=== PATIENT | male | born 1940 | race Caucasian/White ===

== ENCOUNTER → 2017-08-27 | Outpatient (CLI) | payer MEDICARE, OTHER ==
[~2017-08-27] MED LIST: ALAVERT10 M1 PO; AMOXICILLIN 8751 TAB PO; ANTIHISTAMINE25 MG PO; ASPIRIN E.C. 8181 MG PO; BENTYL 10MG10 MG/CAP PO; CANASA 1000MG1000 MG RC; CEPHALEXIN500 M1 PO; CHLOR TRIMETON 44 MG PO; CIPRO 500MG TA500 MG PO; COZAAR 25MG25 MG/TAB PO; FLAGYL500 MG PO; LEVAQUIN 750MG750 M1 PO; LOTRISONE CREAM15 GM TP; PREVACID 15MG15 M1 PO; PROAIR HFA0.09 MG/AC IH; PROBIOTIC FORMU1 CAP PO; QUESTRAN4 GM/9 GM PO; RT ADVAIR 228 DISKUS IH; TYLENOL 325MG325 MG PO; VITAMIN B-1000 MCG/T PO
== END ==
LOC: COL.RAD 15:19
DX: M47.816 Spondylosis without myelopathy or radiculopathy, lumbar region (principal)

== ENCOUNTER → 2017-08-29 | Outpatient (CLI) | payer MEDICARE, OTHER | LOC: COL.RAD 14:12 | DX: S72.002A Fracture of unspecified part of neck of left femur, initial encounter for closed fracture (principal) ==

== ENCOUNTER → 2017-09-15 | Outpatient (CLI) | payer MEDICARE, OTHER | LOC: COL.VAS 12:54 | DX: M79.605 Pain in left leg (principal); Z98.890 Other specified postprocedural states; Z68.25 Body mass index [BMI] 25.0-25.9, adult ==

== ENCOUNTER → 2021-09-04 | Outpatient (CLI) | payer MEDICARE, OTHER | LOC: COL.VAS 09:37 | DX: I73.9 Peripheral vascular disease, unspecified (principal) ==

== ENCOUNTER 2021-12-29 01:53 | Emergency (ER) | payer MEDICARE, OTHER ==
[~2021-12-29] VITALS: Ht 182.9 cm; Wt 77.3 kg
[2021-12-29 02:18] VITALS: TEMP 97.5
[2021-12-29 02:32] VITALS: BP 128/98; PULSE 85
== END 2021-12-29 02:37 | disposition home or self-care (01) ==
LOC: COL.ER 01:53
DX: S40.852A Superficial foreign body of left upper arm, initial encounter (principal); W45.8XXA Other foreign body or object entering through skin, initial encounter

== ENCOUNTER 2022-06-04 07:54 | Day surgery (SDC) | payer MEDICARE ==
[~2022-06-04] VITALS: Ht 182.9 cm; Wt 80.5 kg
[2022-06-04 09:22] VITALS: BP 141/74; PULSE 77; TEMP 97.4
[2022-06-04] MEDS ORDERED: FLAGYL 250250 MG/TAB PO (10:27)
[2022-06-04] MEDS ORDERED: VITAMIN D3 PO (10:27)
[2022-06-04] MEDS ORDERED: COPPER PO (10:29)
[2022-06-04] MEDS ORDERED: PEPTO BISM262 MG/15 PO (10:30)
[2022-06-04] MEDS ORDERED: IRON PO (10:30)
[2022-06-04] MEDS ORDERED: FOSAMAX 70MG TA70 MG PO ×2 (10:32)
[2022-06-04] MEDS ORDERED: MAGNESIUM250 M1 PO (10:33)
[2022-06-04 11:50] VITALS: BP 147/71; PULSE 72; TEMP 97.4
[2022-06-04 12:05] VITALS: BP 146/74; PULSE 74
[2022-06-04 12:20] VITALS: BP 160/83; PULSE 76
[2022-06-04 12:32] VITALS: BP 150/66; PULSE 80
--- NOTE | 2022-06-04 12:45 | NUR ---
1150 RETURNS TO ROOM 2 PER CART. AWAKE, ALERT. RESP CLEAR, UNLABORED. HOB ELEVATED 40 DEGREES. VITAL SIGNS OBTAINED. DENIES DIACOMFORT. PENIS INCISION INTACT. NO DRAINAGE OBSERVED. CALL LIGHT AT SIDE. SIGNIFICANT OTHER IN ROOM 1205 TOLERATES PO JUICE AND MUFFIN WITHOUT NAUSEA. 1207 DISCHARGE INSTRUCIONS REVIEWED. PATIENT AND SIGNIFICANT OTHER VERBALIZE UNDERSTANDING. COPY PROVIDED IN DISCHARGE FOLDER. 1210 AMBULATES TO BATHROOM WITH WALKER AND STANDBY ASSIST. REPORT VOIDED WITHOUT DIFFICULTY 1225 DENIES DISCOMFORT. PENIS INCISION WITHOUT DRAINAGE. NO EDEMA OBSERVED 1235 SITS ON EDGE OF CART. DRESSES SELF.
== END 2022-06-04 12:45 | disposition home or self-care (01) ==
LOC: SDCO 07:54
DX: N47.1 Phimosis (principal); K21.9 Gastro-esophageal reflux disease without esophagitis; Z87.891 Personal history of nicotine dependence; Z85.46 Personal history of malignant neoplasm of prostate; Z79.899 Other long term (current) drug therapy
CPT/HCPCS: J0690; J2405; J2704; J7120

== ENCOUNTER 2022-07-16 17:58 | Emergency (ER) | payer MEDICARE ==
[~2022-07-16] VITALS: Ht 182.9 cm; Wt 81.8 kg
[~2022-07-16 17:58] MED LIST changes: +COPPER PO; +FLAGYL 250250 MG/TAB PO; +FOSAMAX 70MG TA70 MG PO; +IRON PO; +MAGNESIUM250 M1 PO; +PEPTO BISM262 MG/15 PO; +VITAMIN D3 PO
[2022-07-16 18:11] VITALS: TEMP 98
[2022-07-16] MEDS ORDERED: NORCO 325 MG-51 TAB PO (20:08)
[2022-07-16 20:24] VITALS: BP 168/83; PULSE 69
== END 2022-07-16 20:40 | disposition home or self-care (01) ==
LOC: COL.ER 17:58
DX: S32.038A Other fracture of third lumbar vertebra, initial encounter for closed fracture (principal); M48.061 Spinal stenosis, lumbar region without neurogenic claudication; W01.198A Fall on same level from slipping, tripping and stumbling with subsequent striking against other object, initial encounter; Y93.01 Activity, walking, marching and hiking

== ENCOUNTER 2022-08-09 06:56 | Outpatient (CLI) | payer MEDICARE ==
[2022-08-09] VITALS (10 sets, daily range): BP systolic 114–160; BP diastolic 59–88; PULSE 64–81; TEMP 98
[~2022-08-09] VITALS: Ht 182.9 cm; Wt 77.3 kg
[~2022-08-09 06:56] MED LIST changes: +B-121000 MCG PO; +NORCO 325 MG-51 TAB PO; -VITAMIN B-1000 MCG/T PO
[2022-08-09] MEDS ORDERED: ERGOCALCIFER50000 IU PO (08:21)
[2022-08-09] MEDS ORDERED: COPPER GLUCONATE PO (08:24)
--- NOTE | 2022-08-09 08:53 | NUR ---
SEE MERGE FOR ALL INTERVENTIONS, VITAL SIGNS AND MEDICATIONS.
--- NOTE | 2022-08-09 12:18 | NUR ---
PT CAME IN FOR A VERTEBROPLASTY. MEDS, HX AND CONSENT DONE. AFTER ARRIVING BACK TO THE FLOOR PT WAS RESTING COMFORTABLY, NO QUESTIONS OR CONCERNS AT THAT TIME. VITALS STABLE THROUGHOUT RECOVERY. PT WAS PROVIDED DISCHARGE INFO AND EDUCATION, WENT THROUGH THESE PAPERS WITH THE PT. NO QUESTIONS OR CONCERNS. VERBALIZED UNDERSTANDING. PT WAS ACCOMPANIED BY WHEELCHAIR TO WIFES CAR.
== END 2022-08-09 12:12 ==
LOC: COL.CAR 06:56
DX: M48.56XA Collapsed vertebra, not elsewhere classified, lumbar region, initial encounter for fracture (principal); M54.50 Low back pain, unspecified; G62.9 Polyneuropathy, unspecified; Z87.891 Personal history of nicotine dependence
CPT/HCPCS: C1713; J2250; J3010; J7120

== ENCOUNTER 2023-10-25 21:51 | Inpatient (IN) | payer MEDICARE ==
[~2023-10-25] VITALS: Ht 182.9 cm; Wt 71.7 kg
[~2023-10-25 21:51] MED LIST changes: +COPPER GLUCONATE PO; +ERGOCALCIFER50000 IU PO
[2023-10-25] MEDS ORDERED: NS 1,000 ML IV ONE (22:15)
[2023-10-25] MEDS ORDERED: Ondansetron 4 MG/2 ML VIAL IV ONE (22:15)
[2023-10-25 22:38] LABS: BASO % 0.2 % (0.0-2.0); EOS # 0.2 K/mm3 (0.0-0.7); HEMATOCRIT 40.9 % (42.0-52.0); HEMOGLOBIN 13.5 g/dl (13.5-18.0); LYMPH # 0.7 K/mm3 (1.2-3.4); LYMPH % 8.4 % (20.0-51.0); MEAN CELL VOLUME 107 fl (80.0-100.0); MEAN CORPUSCULAR HEMOGLOBIN 35 pg (27-31); MEAN CORPUSCULAR HGB CONC 33 g/dl (33.0-37.0); MEAN PLATELET VOLUME 9.3 fl (7.4-10.4); MONO # 0.4 K/mm3 (0.1-0.6); MONO % 4.8 % (1.7-9.3); PLATELET COUNT 272 K/mm3 (130-400); RED BLOOD COUNT 3.84 M/mm3 (4.20-5.60); REDCELL DISTRIBUTION WIDTH-CV 12.4 % (11.5-14.5)
[2023-10-25 23:02] LABS: ALANINE AMINOTRANSFERASE 16 U/L (0-55); ALBUMIN 3.8 g/dL (3.4-4.8); ALKALINE PHOSPHATASE 85 U/L (40-150); ANION GAP 12 mmol/L (7-16); AST,SGOT 19 U/L (5-34); BILIRUBIN,TOTAL 0.3 mg/dL (0.2-1.2); BLOOD UREA NITROGEN 37 mg/dL (8-26); CALCIUM 9.5 mg/dL (8.4-10.2); CHLORIDE 111 mEq/L (98-107); CREATININE, serum 1.58 mg/dL (0.72-1.25); GLUCOSE 154 mg/dL (70-99); LIPASE 47 U/L (8-78); POTASSIUM 4.5 mEq/L (3.5-4.5); SODIUM 139 mEq/L (136-145); TOTAL PROTEIN 7.8 g/dl (6.2-8.1)
[2023-10-25] MEDS ORDERED: Mag/Al Hydrox/Simeth Susp 30 ML CUP PO ONE (23:15)
[2023-10-25] MEDS ORDERED: Lidocaine 2% Viscous 15 ML UNIT DOSE MM ONE (23:15)
[2023-10-25 23:20] LABS: TROPONIN-I < 0.010 ng/mL (0.00-0.033)
[2023-10-26] VITALS (10 sets, daily range): BP systolic 119–714; BP diastolic 73–81; PULSE 78–90; TEMP 97.4–98.8
[2023-10-26] MEDS ORDERED: Iodixanol-320 100 ML BOTTLE IV ONE (00:03)
[2023-10-26] MEDS ORDERED: NS 50 ML IV ONE (00:05)
[2023-10-26] MEDS ORDERED: Morphine 4 MG/ML VIAL IV ONE (00:45)
[2023-10-26] MEDS ORDERED: Ondansetron 4 MG/2 ML VIAL IV PRN (02:15)
[2023-10-26] MEDS ORDERED: NS 1,000 ML IV SCH (02:15)
[2023-10-26] MEDS ORDERED: Acetaminophen 325 MG TAB PO PRN (02:15)
[2023-10-26] MEDS ORDERED: Morphine 4 MG/ML VIAL IV PRN (02:30)
[2023-10-26] MEDS ORDERED: hydrALAZINE 20 MG/ML 1 ML VIAL IV PRN (02:30)
--- NOTE | 2023-10-26 04:15 | NUR ---
Pt transferred to room 328 from ED via bed. Pt able to transfer self to bed x1 assist. Gait is unsteady. Pt is A&Ox4 and he is accompanied by his daughter at this time. Admission completed. Pt presents w/ NG tube in place to right nare. Advancement required from 10 to 60. Pt tolerated this advancement well. Light brown drainage noted in suction tubing. Low intermittent suction initiated per orders. 22G present to right wrist and is saline locked at time of transfer. Zosyn IV reinitiated by RN. Pt does have a small raised area w/ puncture to left cheek that is red in color. Pt states he was stung by a wasp and that the area had josefa to a head and popped. No active drainage noted. No warmth to touch. Fall risk precautions initiated. Yellow gown and nonskid socks placed. Bed alarm on. Call light in reach. Pt has no questions or concerns at this time. Care ongoing.
[2023-10-26 04:17] LABS: COLLECTION METHOD CLEAN CATCH
[2023-10-26 04:27] LABS: URINE APPEARANCE CLEAR (CLEAR/HAZY); URINE BLOOD NEGATIVE (NEGATIVE); URINE COLOR YELLOW (YELLOW); URINE GLUCOSE NEGATIVE (NEGATIVE); URINE KETONE NEGATIVE (NEGATIVE); URINE NITRATE NEGATIVE (NEGATIVE); URINE PROTEIN(semi-quant) NEGATIVE (NEGATIVE); URINE UROBILINOGEN 0.2 E.U/dL (0.2-1.0)
--- NOTE | 2023-10-26 06:22 | NUR ---
Pt monitored throughout the night. Pt denies any current pain or nausea/vomitting. NG remains in place in right nare and has decreased to 55. Low intermittent suction remains on. Pt denies movement or pulling NG tube. Scant amount of light brown drainage noted in suction tubing. No drainage in suction cannister. Pt has remained NPO. PIV remains in place to right wrist w/ NS @ 75mL infusing w/o complications. No needs or concerns voiced. Call light in reach. Care ongoing.
--- NOTE | 2023-10-26 06:40 | NUR ---
PT RESTING IN BED. PT IS NPO. PT HAS NG TUBE TO RIGHT NARE AT LIS. PT HAS NS RUNNING. PT IS ON RA. PT IS AXOX4. PT IS IN FALL PRECAUTIONS. PT HAS CALL LIGHT AND INSTRUCTED TO CALL WITH ALL NEEDS.
[2023-10-26] MEDS ORDERED: Pantoprazole 40 MG in NS 10 ML IV SCH (09:00)
[2023-10-26] MEDS ORDERED: Heparin 5,000 UNITS/ML 1 ML VIAL SQ SCH (09:00)
--- NOTE | 2023-10-26 10:15 | NUR ---
AGUEDA met with patient to complete initial assessment for discharge planning Patient states he lives in [place] with his friend Yajaira Jewell ([phone]). He states that Yajaira and his son Brian Sanchez ([phone]) are his DPOA and his daughter Ligia Ignacio is alternate DPOA. Patient states he sees Dr. Mckay as his PCP and he uses [facility]. Patient uses a cane, walker and grab bars for DME. Patient states he is independent with ADLs and continues to drive himself to appointments. Patient states he usually has no problems affording medications but did receive manufacture's assistance with an expensive antibiotic recently. Patient plans to return home at discharge but is willing to discuss discharge options pending medical course. Discharge plan: Home
--- NOTE | 2023-10-26 20:00 | NUR ---
PATIENT IS A&O. VSS. REPORTS MILD ABD DISCOMFORT, DENIES NEED FOR PAIN MEDS. ABD IS ROUND AND WITH POSITIVE BOWL SOUNDS PRESENT. NO GAS & NO BM YET. NPO. NG TO LIS WITH SMALL AMOUNTS OF WHITESIDE-GREEN OUTPUT. NO C/O N/V. IV FLUIDS INFUSING VIA PUMP INTO RIGHT WRIST IV. HEAD TO TOE ASSESSMENT COMPLETE. NO OTHER NEEDS AT THIS TIME. CALL LIGHT IN REACH.
[2023-10-27] VITALS (11 sets, daily range): BP systolic 153–186; BP diastolic 79–89; PULSE 71–80; TEMP 97.7–98.5
[2023-10-27 07:05] LABS: BASO % 0.4 % (0.0-2.0); EOS # 0.2 K/mm3 (0.0-0.7); EOS % 2.9 % (0.0-4.0); GRAN # 3.8 K/mm3 (1.4-6.5); GRAN % 73.9 % (42.2-75.2); LYMPH # 0.8 K/mm3 (1.2-3.4); LYMPH % 15.6 % (20.0-51.0); MEAN CORPUSCULAR HGB CONC 33 g/dl (33.0-37.0); MEAN PLATELET VOLUME 9.2 fl (7.4-10.4); MONO # 0.4 K/mm3 (0.1-0.6); MONO % 6.8 % (1.7-9.3); PLATELET COUNT 190 K/mm3 (130-400); RED BLOOD COUNT 3.14 M/mm3 (4.20-5.60); REDCELL DISTRIBUTION WIDTH-CV 12.5 % (11.5-14.5)
[2023-10-27 07:13] LABS: HEMATOCRIT 32.9 % (42.0-52.0); HEMOGLOBIN 10.8 g/dl (13.5-18.0); MEAN CELL VOLUME 105 fl (80.0-100.0); MEAN CORPUSCULAR HEMOGLOBIN 34 pg (27-31)
[2023-10-27 07:28] LABS: BILIRUBIN,TOTAL 0.5 mg/dL (0.2-1.2); CALCIUM 8.6 mg/dL (8.4-10.2); CREATININE, serum 1.2 mg/dL (0.72-1.25); TOTAL PROTEIN 6.1 g/dl (6.2-8.1)
--- NOTE | 2023-10-27 09:41 | NUR ---
Pt resting in bed with 2/10 chronic low back pain. Pt a/o x4, partner at bedside. Pt educated on decreased ice chip intake. Sponge provided and discharge plans discussed to set expectations. NG remains LIS, output sinha. Pt states recent falls at home and uses walker, high fall risk protocol in place. 1 assist to bathroom with walker. Wasp sting to left cheek red adn raised, no other skin issues noted. No needs at this time, will continue to monitor.
[2023-10-27] MEDS ORDERED: metroNIDAZOLE 100 ML IV SCH (11:53)
[2023-10-27] MEDS ORDERED: D5NS 1,000 ML IV SCH (12:00)
[2023-10-27] MEDS ORDERED: Dextrose 50% Water 25 GM/50 ML SYRINGE IV ONE (12:00)
[2023-10-27] MEDS ORDERED: FOSAMAX 70MG TA70 MG PO (12:59)
[2023-10-27] MEDS ORDERED: CHLOR-TABS4 MG PO (13:01)
[2023-10-27] MEDS ORDERED: NEURONTIN100 MG/CAP PO (13:02)
--- NOTE | 2023-10-27 14:09 | NUR ---
Pt NG tube clamped at this time per orders and clears provided. Will continue to monitor for increased pain or N/V.
--- NOTE | 2023-10-27 14:15 | NUR ---
D: Circuits Engineer stopped by room on rounds. A: Pt was resting and content with significant other in the room. Pt has no needs right now. P: Circuits Engineer informed pt that if he needed anything from the clinical data research area to let his nurse know. Circuits Engineer will follow up as needed.
[2023-10-27] MEDS ORDERED: hydrALAZINE 20 MG/ML 1 ML VIAL IV SCH (18:30)
[2023-10-27] MEDS ORDERED: hydrALAZINE 20 MG/ML 1 ML VIAL IV PRN (18:45)
--- NOTE | 2023-10-27 20:00 | NUR ---
PATIENT IS A&O. NOTED ELEVATED B/P IN THE 170'S SYSTOLIC, NO PRN REQUIRED. ALL OTHER VSS. NO C/O PAIN OR NAUSEA. TOLERATING CLEAR LIQUID DIET SO FAR. IV FLUIDS INFUSING VIA PUMP INTO RIGHT WRIST IV. ABD IS ROUND, SOFT & WITH POSITIVE BOWL SOUNDS. PATIENT IS PASSING GAS BUT NO BM YET. NG HAS BEEN CLAMPED ON DAY SHIFT, DC'D NG AND PATIENT TOLERATED WELL. HEAD TO TOE ASSESSMENT COMPLETE. HS MEDS GIVEN. NO OTHER NEEDS AT THIS TIME. CALL LIGHT IN REACH.
[2023-10-28] VITALS (7 sets, daily range): BP systolic 167–178; BP diastolic 77–84; PULSE 67–71; TEMP 97.9–99.5
[2023-10-28 07:11] LABS: BASO % 0.2 % (0.0-2.0); EOS # 0.3 K/mm3 (0.0-0.7); EOS % 5.9 % (0.0-4.0); GRAN # 3.4 K/mm3 (1.4-6.5); GRAN % 70.9 % (42.2-75.2); LYMPH # 0.7 K/mm3 (1.2-3.4); LYMPH % 15.2 % (20.0-51.0); MEAN CELL VOLUME 101 fl (80.0-100.0); MEAN CORPUSCULAR HGB CONC 34 g/dl (33.0-37.0); MEAN PLATELET VOLUME 9.4 fl (7.4-10.4); MONO # 0.4 K/mm3 (0.1-0.6); MONO % 7.4 % (1.7-9.3); PLATELET COUNT 197 K/mm3 (130-400); RED BLOOD COUNT 2.87 M/mm3 (4.20-5.60); REDCELL DISTRIBUTION WIDTH-CV 11.9 % (11.5-14.5)
[2023-10-28 07:13] LABS: HEMATOCRIT 28.9 % (42.0-52.0); HEMOGLOBIN 9.8 g/dl (13.5-18.0); MEAN CORPUSCULAR HEMOGLOBIN 34 pg (27-31)
[2023-10-28 08:05] LABS: ALBUMIN 2.8 g/dL (3.4-4.8); BILIRUBIN,TOTAL 0.5 mg/dL (0.2-1.2); CALCIUM 8.3 mg/dL (8.4-10.2); CREATININE, serum 1.03 mg/dL (0.72-1.25); POTASSIUM 3.7 mEq/L (3.5-4.5); TOTAL PROTEIN 5.9 g/dl (6.2-8.1)
--- NOTE | 2023-10-28 08:40 | NUR ---
DR. NANCE IN TO SEE PT. ADVANCE DIET TOLERATED. BOWEL SOUNDS PRESENT. NO BM YET. PASSING GAS, IV ABX TO LFA. PT IS A/O X4. POSSIBLE DISCHARGE LATER TODAY IF CLEARED BY HOSPITALIST.
[2023-10-28] MEDS ORDERED: AMOXICILLIN 8751 TAB PO (09:48)
[2023-10-28] MEDS ORDERED: Losartan 25 MG TAB PO SCH (10:00)
--- NOTE | 2023-10-28 12:49 | NUR ---
DISCHARGE INSTRUCTIONS REVIEWED WITH PT AND FAMILY. QUESTIONS SOLICTED AND ANSWERED. PT LEFT UNIT PER WHEEL CHAIR WITH STAFF. INT DISCONTINUED PER ORDERS.
== END 2023-10-28 12:30 | disposition home or self-care (01) | DRG 392 ==
LOC: COL.ER 21:51 → SURG 10-26 02:09
PROVIDERS: Nurse Practitioner Primary Care; Physician Assistant; ADMIT Internal Medicine
DX: K57.12 Diverticulitis of small intestine without perforation or abscess without bleeding (principal); K56.7 Ileus, unspecified; E16.2 Hypoglycemia, unspecified; I12.9 Hypertensive chronic kidney disease with stage 1 through stage 4 chronic kidney disease, or unspecified chronic kidney disease; N18.30 Chronic kidney disease, stage 3 unspecified
CPT/HCPCS: J0360; J1644; J2270; J2405; J2470; J2543; J7030; J7042; Q9967